=== PATIENT | female | born 1960 | race Caucasian/White ===

== ENCOUNTER 2020-10-06 08:19 | Emergency (ER) | payer MEDICAID ==
[~2020-10-06] VITALS: Ht 157.5 cm; Wt 61.1 kg
[2020-10-06 08:32] VITALS: BP 134/89
--- NOTE | 2020-10-06 10:35 | NUR ---
talked with JAVY Morrison and he says that David from [facility] is going to come down and talk with the pt. pt is aware of this plan.
--- NOTE | 2020-10-06 11:06 | NUR ---
Called David Maldonado and there was no answer and no space on voicemail to leave a message.
--- NOTE | 2020-10-06 11:30 | NUR ---
pt is being talked to at this time in her room with mental health staff
[2020-10-06] MEDS ORDERED: PROP20TA6 PO (12:30)
[2020-10-06] MEDS ORDERED: TRAZ-256 PO (12:30)
[2020-10-06] MEDS ORDERED: HYDR-3686 PO (12:30)
== END 2020-10-06 12:50 | disposition home or self-care (01) ==
LOC: ER 08:20
DX: F41.9 Anxiety disorder, unspecified (principal); F41.0 Panic disorder [episodic paroxysmal anxiety]; F42.9 Obsessive-compulsive disorder, unspecified; E78.00 Pure hypercholesterolemia, unspecified; Z79.899 Other long term (current) drug therapy
CPT/HCPCS: 99283

== ENCOUNTER 2022-08-11 04:48 | Emergency (ER) | payer MEDICAID ==
[~2022-08-11] VITALS: Ht 157.5 cm; Wt 61.4 kg
[~2022-08-11 04:48] MED LIST: PROP20TA6 PO; TRAZ-256 PO
[2022-08-11 06:02] LABS: BASOPHILS % (AUTO) 0.4 % (0-1); EOSINOPHILS # (AUTO) 0.1 X10'3 (0-0.9); EOSINOPHILS % (AUTO) 1.8 % (0-6); HEMATOCRIT 39.3 % (35.0-45.0); HEMOGLOBIN 13.1 g/dl (12.0-16.0); LYMPHOCYTES % (AUTO) 36.7 % (21-51); MEAN CORPUSCULAR HEMOGLOBIN 29.7 PG (27.0-31.0); MEAN CORPUSCULAR HGB CONC 33.4 g/dL (33.0-36.5); MEAN CORPUSCULAR VOLUME 88.9 FL (78-98); MEAN PLATELET VOLUME 9.5 FL (7.4-10.4); MONOCYTES # (AUTO) 0.5 X10'3 (0-0.9); MONOCYTES % (AUTO) 9.5 % (2-12); NEUTROPHILS # (AUTO) 2.9 X10'3 (1.8-7.7); NEUTROPHILS % (AUTO) 51.6 % (42-75); PLATELET COUNT 234 X10'3 (140-440); RED BLOOD COUNT 4.42 X10'6 (4.20-5.60); RED CELL DISTRIBUTION WIDTH 12.8 % (11.5-14.5); WHITE BLOOD COUNT 5.6 X10'3 (4.5-11.0)
[2022-08-11 06:14] LABS: ALANINE AMINOTRANSFERASE 42 U/L (12-78); ALBUMIN 3.8 G/DL (3.4-5.0); ALBUMIN/GLOBULIN RATIO 1.2 (1.1-1.5); ALKALINE PHOSPHATASE 90 IU/L (46-116); ANION GAP 9 (8-16); ASPARTATE AMINO TRANSFERASE 33 U/L (10-37); BILIRUBIN,TOTAL 0.2 MG/DL (0.1-1.0); BLOOD UREA NITROGEN 20 MG/DL (7-18); BUN/CREATININE RATIO 27.4 (6.6-38.0); CALCIUM 8.7 MG/DL (8.5-10.1); CHLORIDE 104 MMOL/L (99-107); CREATININE 0.73 MG/DL (0.40-0.90); GLUCOSE 111 MG/DL (70-104); SODIUM 140 MMOL/L (135-145); TOTAL CARBON DIOXIDE 26.6 MMOL/L (24-32); TOTAL PROTEIN 7.1 G/DL (6.4-8.2); eGFR 81 ML/MIN
[2022-08-11 06:23] LABS: POTASSIUM 3.8 MMOL/L (3.5-5.1)
--- NOTE | 2022-08-11 06:24 | NUR ---
report from gerardo for continuation of care. pt is awake ao4 no complaints. resp even unlabored.
[2022-08-11 07:47] VITALS: BP_DIAS 74
[2022-08-11 10:27] VITALS: BP_SYST 110
== END 2022-08-11 10:29 | disposition home or self-care (01) ==
LOC: ER 04:49
DX: R07.89 Other chest pain (principal); E78.00 Pure hypercholesterolemia, unspecified; F41.9 Anxiety disorder, unspecified; F32.A Depression, unspecified; Z79.899 Other long term (current) drug therapy
CPT/HCPCS: 36415; 71045; 80053; 83880; 84484; 85025; 93005; 99285

== ENCOUNTER 2022-11-11 06:42 | Day surgery (SDC) | payer MEDICAID ==
[2022-11-11] MEDS ORDERED: CLOM50CA10 PO (07:04)
[2022-11-11] MEDS ORDERED: CLON0.5T23 PO (07:04)
[2022-11-11] MEDS ORDERED: PROP20TA6 PO (07:11)
[2022-11-11] MEDS ORDERED: fentaNYL/PF 50MCG/1 ML 2ML syringe ONE (07:12)
[2022-11-11] MEDS ORDERED: MIDAZolam 1 MG/ML 5ML VIAL ONE (07:13)
[2022-11-11] MEDS ORDERED: FENO145T26 PO (07:15)
[2022-11-11] MEDS ORDERED: ROSU40TA PO (07:15)
[2022-11-11 07:23] VITALS: BP 106/72
[2022-11-11 08:46] VITALS: BP 106/72
[2022-11-11 08:56] VITALS: BP 106/71
[2022-11-11 09:06] VITALS: BP 112/88
[2022-11-11 09:16] VITALS: BP 114/86
== END 2022-11-11 09:20 | disposition home or self-care (01) ==
LOC: GI LAB 06:42
PROVIDERS: ATTEND Internal Medicine Gastroenterology
DX: R19.4 Change in bowel habit (principal)
CPT/HCPCS: 45380; 99152; 99153; J2250; J3010; J7030; Z7512; A4620

== ENCOUNTER 2022-11-12 10:46 | Emergency (ER) | payer MEDICAID ==
[~2022-11-12] VITALS: Ht 177.8 cm; Wt 63.6 kg
[~2022-11-12 10:46] MED LIST changes: +CLOM50CA10 PO; +CLON0.5T23 PO; +FENO145T26 PO; +ROSU40TA PO; -TRAZ-256 PO
[2022-11-12 11:24] VITALS: BP 100/63
--- NOTE | 2022-11-12 11:34 | NUR ---
Pt in [facility]TA, Pt was here yesterday for a colonoscopy. Pt is here today for hand, and RAC pain to her R extremity r/t a contusion from IV placement. Pt educated to POC. Pt in agreement. Pending providers eval and treatment.
== END 2022-11-12 12:50 | disposition home or self-care (01) ==
LOC: ER 10:46
DX: S60.211A Contusion of right wrist, initial encounter (principal); E78.00 Pure hypercholesterolemia, unspecified; F31.9 Bipolar disorder, unspecified; Z88.1 Allergy status to other antibiotic agents; Z79.899 Other long term (current) drug therapy; Z79.1 Long term (current) use of non-steroidal anti-inflammatories (NSAID); Z79.2 Long term (current) use of antibiotics; X58.XXXA Exposure to other specified factors, initial encounter; Y93.89 Activity, other specified; Y92.89 Other specified places as the place of occurrence of the external cause; Y99.8 Other external cause status
CPT/HCPCS: 99281

== ENCOUNTER 2022-11-15 13:40 | Emergency (ER) | payer MEDICAID ==
[~2022-11-15] VITALS: Ht 154.9 cm; Wt 63.6 kg
[2022-11-15 13:51] VITALS: BP 110/69
== END 2022-11-15 18:03 | disposition home or self-care (01) ==
LOC: ER 13:40
DX: S40.021A Contusion of right upper arm, initial encounter (principal); E78.00 Pure hypercholesterolemia, unspecified; F41.9 Anxiety disorder, unspecified; F32.9 Major depressive disorder, single episode, unspecified; Z79.899 Other long term (current) drug therapy; Z88.8 Allergy status to other drugs, medicaments and biological substances; X58.XXXA Exposure to other specified factors, initial encounter; Y93.89 Activity, other specified; Y92.89 Other specified places as the place of occurrence of the external cause; Y99.8 Other external cause status
CPT/HCPCS: 93971; 99284

== ENCOUNTER 2023-01-01 11:22 | Emergency (ER) | payer MEDICAID ==
[~2023-01-01] VITALS: Ht 157.5 cm; Wt 65.0 kg
[2023-01-01 12:52] LABS: BASOPHILS % (AUTO) 0.2 % (0-1); EOSINOPHILS % (AUTO) 0.1 % (0-6); HEMATOCRIT 42.2 % (35.0-45.0); HEMOGLOBIN 14.3 g/dl (12.0-16.0); LYMPHOCYTES # (AUTO) 1.4 X10'3 (1.1-4.8); LYMPHOCYTES % (AUTO) 24.4 % (21-51); MEAN CORPUSCULAR HEMOGLOBIN 30.3 PG (27.0-31.0); MEAN CORPUSCULAR HGB CONC 33.9 g/dL (33.0-36.5); MEAN CORPUSCULAR VOLUME 89.3 FL (78-98); MONOCYTES # (AUTO) 0.2 X10'3 (0-0.9); MONOCYTES % (AUTO) 3.6 % (2-12); NEUTROPHILS % (AUTO) 71.7 % (42-75); PLATELET COUNT 203 X10'3 (140-440); RED BLOOD COUNT 4.73 X10'6 (4.20-5.60); RED CELL DISTRIBUTION WIDTH 12.6 % (11.5-14.5); WHITE BLOOD COUNT 5.5 X10'3 (4.5-11.0)
[2023-01-01 13:07] LABS: ALANINE AMINOTRANSFERASE 28 U/L (12-78); ALBUMIN 4.1 G/DL (3.4-5.0); ALBUMIN/GLOBULIN RATIO 1.2 (1.1-1.5); ALKALINE PHOSPHATASE 99 IU/L (46-116); ANION GAP 12 (8-16); ASPARTATE AMINO TRANSFERASE 17 U/L (10-37); BLOOD UREA NITROGEN 6 MG/DL (7-18); BUN/CREATININE RATIO 11.8 (10.0-20.0); CALCIUM 9.1 MG/DL (8.5-10.1); CHLORIDE 91 MMOL/L (99-107); CREATININE 0.51 MG/DL (0.40-0.90); GLUCOSE 118 MG/DL (70-104); LIPASE 61 U/L (73-393); POTASSIUM 3.7 MMOL/L (3.5-5.1); SODIUM 126 MMOL/L (135-145); TOTAL CARBON DIOXIDE 22.6 MMOL/L (24-32); TOTAL PROTEIN 7.5 G/DL (6.4-8.2); eGFR > 90 ML/MIN
[2023-01-01 14:14] LABS: CLARITY,URINE CLEAR (Clear); COLOR,URINE YELLOW (Yellow); GLUCOSE, URINE NEGATIVE (Neg); KETONES,URINE 40 mg/dl (Neg); LEUKOCYTE ESTERASE ,URINE NEGATIVE (Neg); NITRITES, URINE NEGATIVE (Neg); OCCULT BLOOD,URINE TRACE-INTACT (Neg); PROTEIN,URINE NEGATIVE (Neg); UROBILINOGEN,URINE 0.2 E.U/dL (0.2-1.0)
[2023-01-01] MEDS ORDERED: LORazepam 2 mg/ml vial IM ONE (14:20)
[2023-01-01] MEDS ORDERED: normal saline 1000ml 1,000 ML IV ONE ×2 (14:20→15:15)
[2023-01-01 14:22] LABS: UA COLLECTION TYPE CLN CATCH MIDSTREAM
[2023-01-01 14:24] LABS: BACTERIA,URINE 1+ /HPF (Neg); MUCUS STRANDS FEW /LPF (Neg); RBC,URINE 0-2 /HPF (0-2); SQUAMOUS EPITHELIAL CELL,UR FEW /LPF (FEW)
[2023-01-01] MEDS ORDERED: cephalexin 500mg capsule PO ONE (14:30)
[2023-01-01] MEDS ORDERED: sodium chloride 1gm tablet PO SCH (15:15)
[2023-01-01 15:27] VITALS: BP 137/83
[2023-01-01] MEDS ORDERED: CEPH250T PO (16:14)
[2023-01-01] MEDS ORDERED: LORA-269 PO (16:14)
== END 2023-01-01 17:18 | disposition home or self-care (01) ==
LOC: ER 11:23
DX: R11.2 Nausea with vomiting, unspecified (principal); N39.0 Urinary tract infection, site not specified; F41.9 Anxiety disorder, unspecified; E78.00 Pure hypercholesterolemia, unspecified; Z88.1 Allergy status to other antibiotic agents; Z79.899 Other long term (current) drug therapy
CPT/HCPCS: 36415; 80053; 81001; 83690; 85025; 87088; 96372; 99283; J2060; J7030

== ENCOUNTER 2023-11-03 15:21 | Outpatient (CLI) | payer MEDICAID ==
[~2023-11-03 15:21] MED LIST changes: +LORA-269 PO
== END 2023-11-03 23:59 | disposition home or self-care (01) ==
LOC: RAD 15:21
PROVIDERS: ATTEND Physician Assistant
DX: N85.8 Other specified noninflammatory disorders of uterus (principal); N95.0 Postmenopausal bleeding
CPT/HCPCS: 76856; 93976

== ENCOUNTER 2024-08-27 15:59 | Emergency (ER) | payer MEDICARE, MEDICAID ==
[~2024-08-27] VITALS: Ht 157.5 cm; Wt 67.3 kg
[2024-08-27 17:05] LABS: BASOPHILS % (AUTO) 0.3 % (0-1); EOSINOPHILS % (AUTO) 0.2 % (0-6); HEMATOCRIT 39.8 % (35.0-45.0); HEMOGLOBIN 14.1 g/dl (12.0-16.0); LYMPHOCYTES # (AUTO) 1.5 X10'3 (1.1-4.8); LYMPHOCYTES % (AUTO) 25.9 % (21-51); MEAN CORPUSCULAR HEMOGLOBIN 31.8 PG (27.0-31.0); MEAN CORPUSCULAR HGB CONC 35.4 g/dL (33.0-36.5); MEAN PLATELET VOLUME 8.7 FL (7.4-10.4); MONOCYTES # (AUTO) 0.3 X10'3 (0-0.9); NEUTROPHILS # (AUTO) 3.8 X10'3 (1.8-7.7); NEUTROPHILS % (AUTO) 67.6 % (42-75); PLATELET COUNT 228 X10'3 (140-440); RED BLOOD COUNT 4.42 X10'6 (4.20-5.60); RED CELL DISTRIBUTION WIDTH 13.1 % (11.5-14.5); WHITE BLOOD COUNT 5.6 X10'3 (4.5-11.0)
[2024-08-27] MEDS: ondansetron/PF 4mg/2ml inj IV ONE (17:16)
[2024-08-27] MEDS: normal saline 1000ml 1,000 ML IV SCH (17:16)
[2024-08-27] MEDS: LORazepam 2 mg/ml vial IV ONE (17:25)
[2024-08-27 17:30] LABS: ALANINE AMINOTRANSFERASE 70 U/L (12-78); ALBUMIN 4.1 G/DL (3.4-5.0); ALKALINE PHOSPHATASE 88 IU/L (46-116); AMYLASE 68 U/L (25-115); ANION GAP 9 (8-16); ASPARTATE AMINO TRANSFERASE 38 U/L (10-37); BILIRUBIN,TOTAL 0.9 MG/DL (0.1-1.0); BLOOD UREA NITROGEN 6 MG/DL (7-18); CHLORIDE 94 MMOL/L (99-107); GLUCOSE 119 MG/DL (70-104); LIPASE 32 U/L (16-77); SODIUM 128 MMOL/L (135-145); TOTAL CARBON DIOXIDE 24.7 MMOL/L (24-32); TOTAL PROTEIN 8.1 G/DL (6.4-8.2); eCRCL 89 ML/MIN; eGFR > 90 ML/MIN
[2024-08-27 19:01] VITALS: BP 130/78; PULSE 65; RESP 15; TEMP 96.8; O2SAT 100
[2024-08-27] MEDS ORDERED: ONDA-243 PO (19:20)
== END 2024-08-27 19:05 | disposition home or self-care (01) ==
LOC: ER 16:00
DX: K76.0 Fatty (change of) liver, not elsewhere classified (principal); R10.11 Right upper quadrant pain; E78.00 Pure hypercholesterolemia, unspecified; F41.9 Anxiety disorder, unspecified; F32.A Depression, unspecified; Z88.8 Allergy status to other drugs, medicaments and biological substances
CPT/HCPCS: 36415; 74022; 76700; 80053; 82150; 83690; 85025; 96361; 96374; 96375; 99285; J2060; J2405; J7030

== ENCOUNTER 2025-01-16 15:58 | Emergency (ER) | payer MEDICARE, MEDICAID ==
[~2025-01-16] VITALS: Ht 157.5 cm; Wt 57.2 kg
[~2025-01-16 15:58] MED LIST changes: +ONDA-243 PO
[2025-01-16 16:13] VITALS: BP 117/78; PULSE 86; RESP 18; O2SAT 95
--- NOTE | 2025-01-16 17:04 | Physician Documentation ---
History of Present Illness ~ Chief Complaint: Depression Stated Complaint: DEPRESSION Time Seen by MD: 16:42 Primary Medical Doctor: [facility] HPI 64 Year old female presents to the ED with a complaint of ongoing anxiety. She says she is already being seen the [facility] for psychiatry. She has been on multiple medications that do not appear to be helping her . denies any HI or SI. She states she would like to go up stairs to [place] for [facility]. Day of Onset: Jan 16, 2025 Medication Reconciliation Allergies: Coded Allergies: niacin (Unverified Allergy, Intermediate, hives, 08/27/24) Scheduled Clomipramine HCl (Clomipramine HCl), 1 CAP PO HS, (Reported) Clonazepam (Clonazepam), 1 TAB PO Q6H, (Reported) Fenofibrate Nanocrystallized (Fenofibrate), 1 TAB PO DAILY, (Reported) Hydroxyzine Hcl* (Atarax*), 1 TAB PO Q12H Lorazepam (Ativan), 1 TAB PO Q8H Propranolol Hcl (Propranolol Hcl), 1 TAB PO Q12H, (Reported) Rosuvastatin Calcium* (Crestor*), 1 TAB PO DAILY, (Reported) Scheduled PRN ONDANSETRON ODT 4mg tablet (Ondansetron Odt), 1 TAB PO Q6H PRN PRN for nause a/vomiting Past Medical History Past Medical History: High Cholesterol, *PSYCH*, Anxiety, Depression, Panic Disorder Past Surgical History: noncontributory Alcohol Use: None Drug Use: none Lives In: Home Occupation: disabled Review of Systems All Other Systems at this time: Reviewed and Negative ROS As stated above in the HPI, otherwise all systems are reviewed and negative. Physical Exam Vital Signs: Temperature: 98.5, Heart Rate: 86, Respiratory Rate: 18, BP: 117/78, Pulse Oximetry: 95, Weight: 57.200 Oxygen Flow Rate: 0 Physical Exam General: Alert, no apparent distress. HEENT: PERRL, EOMI, no injection, moist mucous membranes. Neurologic: Oriented x4. Psychiatric: Anxious appearing Skin: Normal color, warm and dry. No edema, no ecchymosis. Progress Results/Orders Results/Orders Vital Signs 01/16/25 01/16/25 16:13 17:39 Temp 98.5 98.5 Pulse 86 Resp 18 B/P (MAP) 117/78 Pulse Ox 95 O2 Flow Rate 0 Medical Decision Making Findings It is mostly with the patient that I can offer hydroxyzine to help with anxiety but really she needs to follow up in the outpatient setting and pursue therapy if she feels that medications are not working for her Has a resources reports some and will do so as directed. Differential Dx:Considerations: Include: Alcohol abuse, Anxiety, Bipolar disorder, Conversion disorder, Depression, Encephaloathy, Homicidal, Panic disorder, Personality disorder, Schizophrenia, Substance abuse, Suicidal, Other Departure Disposition: 01 HOME / SELF CARE / HOMELESS Impression: Primary Impression: Depression Additional Impression: Anxiety Condition: Stable Discharge Instructions: Managing Anxiety, Adult Referrals: NO PRIMARY CARE PROVIDER (PCP) Prescriptions Hydroxyzine Hcl* (Atarax*) 25 Mg Tablet 1 TAB PO Q12H for anxiety for 30 Days, #60 TAB Prov: RANDAL TEMPLE HYDRAULIC BULL RIVETER OPERATOR 01/16/25 Signature Scribe Signature: y Attestation: Scribed for Randal Tmeple Inspector by Randal Patel NP . 01/16/25 22:59 RANDAL TEMPLE NP Jan 16, 2025 17:04
[2025-01-16] MEDS ORDERED: HYDR-3686 PO (17:05)
[2025-01-16 17:39] VITALS: TEMP 98.5
== END 2025-01-16 17:40 | disposition home or self-care (01) ==
LOC: ER 15:58
DX: F32.A Depression, unspecified (principal); F41.9 Anxiety disorder, unspecified; E78.00 Pure hypercholesterolemia, unspecified
CPT/HCPCS: 99283

== ENCOUNTER 2025-03-12 20:02 | Emergency (ER) | payer MEDICARE, MEDICAID | END 2025-03-12 22:54 | disposition left against medical advice (07) | LOC: ER 20:02 | DX: Z00.8 Encounter for other general examination (principal); Z88.8 Allergy status to other drugs, medicaments and biological substances; Z53.21 Procedure and treatment not carried out due to patient leaving prior to being seen by health care provider ==

== ENCOUNTER 2025-05-23 12:20 | Emergency (ER) | payer MEDICARE, MEDICAID ==
[~2025-05-23] VITALS: Ht 154.9 cm; Wt 52.1 kg
[2025-05-23 12:23] VITALS: BP 112/68; PULSE 76; RESP 16; TEMP 97.8; O2SAT 98
--- NOTE | 2025-05-23 13:29 | Physician Documentation ---
History of Present Illness ~ Chief Complaint: Mental Health Eval Stated Complaint: EVLORENA Time Seen by MD: 13:28 Primary Medical Doctor: [facility] HPI This is a 65-year-old female that presents to the emergency department requesting help with her anxiety. She reports that she has seen a psychiatrist at [facility], although not recently. She reports that her anxiety is severe, but denies suicidal or homicidal ideation. Denies symptoms of illness to include chills or fever, chest pain or shortness of breath, nausea or vomiting. Medication Reconciliation Allergies: Coded Allergies: niacin (Unverified Allergy, Intermediate, hives, 05/23/25) Scheduled Clomipramine HCl (Clomipramine HCl), 1 CAP PO HS, (Reported) Clonazepam (Clonazepam), 1 TAB PO Q6H, (Reported) Fenofibrate Nanocrystallized (Fenofibrate), 1 TAB PO DAILY, (Reported) Lorazepam (Ativan), 1 TAB PO Q8H Propranolol Hcl (Propranolol Hcl), 1 TAB PO Q12H, (Reported) Rosuvastatin Calcium* (Crestor*), 1 TAB PO DAILY, (Reported) Scheduled PRN ONDANSETRON ODT 4mg tablet (Ondansetron Odt), 1 TAB PO Q6H PRN PRN for nausea/vomiting Past Medical History Past Medical History: High Cholesterol, *PSYCH*, Anxiety, Depression, Panic Disorder Past Surgical History: noncontributory Alcohol Use: None Drug Use: none Lives In: Home Occupation: disabled Review of Systems ROS As stated above in the HPI, otherwise all systems are reviewed and negative. Physical Exam Vital Signs: Temperature: 97.8, Source: Temporal, Heart Rate: 76, Respiratory Rate: 16, BP: 112/68, Pulse Oximetry: 98, Weight: 52.100 Oxygen Flow Rate: 0 Physical Exam General: Alert, no apparent distress. HEENT: PERRL, EOMI, no injection, moist mucous membranes. Neck: Full range of motion. Respiratory: Lungs clear, no respiratory distress. Chest: No accessory muscle use. Cardiovascular: Regular rate and rhythm, no murmurs. Gastrointestinal: Soft, nontender, nondistended. Bowels sounds present. Extremities: Normal range of motion, no deformity. Neurologic: Oriented x4. Psychiatric: Normal mood and affect. Skin: Normal color, warm and dry. No edema, no ecchymosis. Progress Results/Orders Results/Orders Completed Orders - DUC DE LEON NP Hydroxyzine Tablet (Atarax Tablet) (05/23/25 13:35) Vital Signs 05/23/25 12:23 Temp 97.8 Pulse 76 Resp 16 B/P (MAP) 112/68 Pulse Ox 98 O2 Flow Rate 0 Medical Decision Making Additional information obtaine: old records Findings Last seen in this hospital 01/16/2025 for anxiety. Differential Dx:Considerations: Include: Alcohol abuse, Anxiety, Bipolar disorder, Conversion disorder, Depression, Encephaloathy, Homicidal, Panic disorder, Personality disorder, Schizophrenia, Substance abuse, Suicidal Departure Time of Disposition: 13:51 Disposition: 01 HOME / SELF CARE / HOMELESS Impression: Primary Impression: Anxiety Discharge Instructions: Panic Attack, Depression, Adult Additional Instructions: You were given resources for mental health care. You were given a dose of anxiety medicine in the ER. Please see the psychiatrist as recommended to disc uss medication management. Please return if worse. Referrals: NO PRIMARY CARE PROVIDER (PCP) Education Educated: Patient Educated regarding: diagnosis, treatment, prognosis, need for follow up Signature Scribe Signature: x Attestation: The note accurately reflects work and decisions made by me.Duc Patel NP 05/23/25 13:34 DUC DE LEON NP May 23, 2025 13:29
[2025-05-26] MEDS ORDERED: TRAZ-251 PO (07:18)
[2025-05-26] MEDS ORDERED: GABA300C PO (07:19)
[2025-05-26] MEDS ORDERED: QUET50TA PO (07:40)
== END 2025-05-23 14:32 | disposition home or self-care (01) ==
LOC: ER 12:21
DX: F41.9 Anxiety disorder, unspecified (principal); E78.00 Pure hypercholesterolemia, unspecified; F32.A Depression, unspecified; Z88.8 Allergy status to other drugs, medicaments and biological substances; Z79.899 Other long term (current) drug therapy
CPT/HCPCS: 99282

== ENCOUNTER 2025-06-22 08:06 | Emergency (ER) | payer MEDICARE, MEDICAID ==
[~2025-06-22] VITALS: Ht 154.9 cm; Wt 56.4 kg
[2025-06-22 08:06] VITALS: TEMP 98.1
[~2025-06-22 08:06] MED LIST changes: +ATOR20TA66 PO; -CLOM50CA10 PO; -CLON0.5T23 PO; -FENO145T26 PO; -LORA-269 PO; -ONDA-243 PO; +PROP10TA10 PO; -PROP20TA6 PO; +RISP-32 PO; -ROSU40TA PO; +gabapentin capsule PO
[2025-06-22 08:32] LABS: MEAN PLATELET VOLUME 8.9 FL (7.4-10.4); RED CELL DISTRIBUTION WIDTH 13.1 % (11.5-14.5)
[2025-06-22 08:47] LABS: CREATININE 0.73 MG/DL (0.40-0.90); TOTAL CARBON DIOXIDE 28.9 MMOL/L (24-32); eCRCL 57 ML/MIN; eGFR 80 ML/MIN
[2025-06-22 10:13] LABS: LEUKOCYTE ESTERASE ,URINE NEGATIVE (Neg); NITRITES, URINE NEGATIVE (Neg); OCCULT BLOOD,URINE NEGATIVE (Neg)
[2025-06-22 10:23] LABS: UA COLLECTION TYPE CLN CATCH MIDSTREAM
[2025-06-22 10:27] LABS: MUCUS STRANDS MODERATE /LPF (Neg)
[2025-06-22 10:28] LABS: SQUAMOUS EPITHELIAL CELL,UR FEW /LPF (FEW)
[2025-06-22 10:47] VITALS: BP 111/72; PULSE 69; RESP 18; O2SAT 98
[2025-06-22] MEDS ORDERED: HYDR-3686 PO (11:15)
--- NOTE | 2025-06-22 11:16 | Physician Documentation ---
History of Present Illness Chief Complaint: Abdominal Pain Stated Complaint: ABD PAIN Time Seen by MD: 10:46 OK to notify your PCP?: Yes Primary Medical Doctor: [facility] Source: patient Mode of Arrival: POV Exam Limitations: no limitations HPI Brought in by ambulance for lower abdominal aching for the past couple of days with some nausea. She had 1 episode of diarrhea. She reports that she has not eaten anything in 3 days. She reports that she abruptly went off of risperidone and gabapentin. She plans to follow up with her mental health provider on Tuesday. She is requesting Ativan. She reports that she had 25 mg of Atarax about 7 months ago but she did not like the way that it made her feel and she prefers Ativan instead. She reports that she has been under increased stress for the past 9-10 weeks and feeling more anxious than normal. She denies any HI or SI. She wrote a list of things that have been worrying her and she is being tracked by a secret organization". She reports that her mental provider told her that she is having hallucinations but she says that it is real and not a hallucination. Medication Reconciliation Allergies: Coded Allergies: niacin (Unverified Allergy, Intermediate, hives, 06/22/25) Scheduled Atorvastatin Calcium (Atorvastatin Calcium), 20 MG PO HS Hydroxyzine Hcl* (Atarax*), 0.5 TAB PO Q12H Propranolol Hcl* (Inderal*), 10 MG PO TID Risperidone (Risperidone), 2 MG PO BID [gabapentin capsule], 900 MG PO TID Past Medical History Past Medical History: High Cholesterol, *PSYCH*, Anxiety, Depression, Panic Disorder Past Surgical History: noncontributory Alcohol Use: None Drug Use: none Lives with: Alone Lives In: Home Occupation: disabled Review of Systems All Other Systems at this time: Reviewed and Negative Physical Exam Vital Signs: RN Vital Signs have been reviewed: Yes, Temperature: 98.1, Source: Temporal, Heart Rate: 69, Respiratory Rate: 18, BP: 111/72, Pulse Oximetry: 98, Weight: 56.360 Oxygen Flow Rate: 0 Pulse Oximetry Reflects: adequate oxygenation Physical Exam General: Alert, no apparent distress. HEENT: PERRL, EOMI, no injection, moist mucous membranes. Neck: Full range of motion. Respiratory: Lungs clear, no respiratory distress. Chest: No accessory muscle use. Cardiovascular: Regular rate and rhythm, no murmurs. Gastrointestinal: Soft, nontender, nondistended. Bowels sounds present. Extremities: Normal range of motion, no deformity. Neurologic: Oriented x4. Psychiatric: Normal mood and affect. Skin: Normal color, warm and dry. No edema, no ecchymosis. Progress Results/Orders Reviewed/noted all lab results: Yes Results/Orders Vital Signs 06/22/25 06/22/25 08:06 10:47 Temp 98.1 Pulse 70 69 Resp 16 18 B/P (MAP) 118/68 111/72 (85) Pulse Ox 98 98 O2 Flow Rate 0 Laboratory Tests Test 06/22/25 08:21 06/22/25 09:20 White Blood Count 5.0 Red Blood Count 4.35 Hemoglobin 13.7 Hematocrit 39.5 Mean Corpuscular Volume 90.8 Mean Corpuscular Hemoglobin 31.4 H Mean Corpuscular Hemoglobin Concent 34.6 Red Cell Distribution Width 13.1 Platelet Count 214 Mean Platelet Volume 8.9 Neutrophils (%) (Auto) 69.3 Lymphocytes (%) (Auto) 24.0 Monocytes (%) (Auto) 5.8 Eosinophils (%) (Auto) 0.4 Basophils (%) (Auto) 0.5 Neutrophils # (Auto) 3.5 Lymphocytes # (Auto) 1.2 Monocytes # (Auto) 0.3 Eosinophils # (Auto) 0.0 Basophils # (Auto) 0.0 CBC Comment Sodium Level 141 Potassium Level 3.6 Chloride Level 104 Carbon Dioxide Level 28.9 Anion Gap 8 Blood Urea Nitrogen 13 Creatinine 0.73 Estimated GFR/1.73 m2 80 BUN/Creatinine Ratio 17.8 Glucose Level 93 Calcium Level 8.9 Total Bilirubin 0.9 Aspartate Amino Transf (AST/SGOT) 17 Alanine Aminotransferase (ALT/SGPT) 22 Alkaline Phosphatase 82 Total Protein 7.6 Albumin 3.9 Globulin 3.7 Albumin/Globulin Ratio 1.1 Lipase 34 Chemistry Comments Urine Specimen Description Cln catch midstream Urine Color Yellow Urine Clarity Slightly cloudy Urine pH 6.0 Urine Specific [place] 1.025 Urine Protein Negative Urine Glucose (UA) Negative Urine Ketones 15 H Urine Occult Blood Negative Urine Nitrite Negative Urine Bilirubin Negative Urine Urobilinogen 0.2 Urine Leukocyte Esterase Negative Urine RBC 0-2 Urine WBC 0-4 Urine Squamous Epithelial Cells Few Urine Bacteria Few Urine Mucus Moderate Urine Culture Indicated Not ind Volume Urine Centrifuged 10 ml Urine Comment Medical Decision Making Additional information obtaine: old records Findings Reports with nonspecific abdominal pain but has also not eaten a meal in the past few days. Discussed that she should start eating foods from the BRAT diet to prevent further upset stomach. Labs are unremarkable. A physical exam is unremarkable. She reports feeling anxious but did not like taking a 25 mg tablet of hydroxyzine. She is requesting Ativan instead. I declined the Ativan but gave a 10 mg hydroxyzine. Prescription sent to the pharmacy that she can take as needed for the half tablet of the 25 mg. We discussed that if she is feeling like it is not as helpful, she can take a full tablet. Has plans to meet with her mental health provider on Tuesday. Denies any HI or SI. Differential Dx:Considerations: Bowel obstruction, Cholelithasis, Constipation, Gastritis/PUD, Pancreatitis, Urinary tract infection Additional Comments Medication non adherence, suicidal ideation, homicidal ideation. Departure Disposition: HOME / SELF CARE / HOMELESS Impression: Primary Impression: Anxiety Additional Impression: Mental disorder Condition: Stable Discharge Instructions: Managing Anxiety, Adult Additional Instructions: Please follow up with your mental health provider on Tuesday as discussed. Take your mental health medications as prescribed. Return back here for any new or worsening symptoms. Referrals: NO PRIMARY CARE PROVIDER (PCP) Prescriptions Hydroxyzine Hcl* (Atarax*) 25 Mg Tablet 0.5 TAB PO Q12H for anxiety for 30 Days, #30 TAB Prov: DEBBIE PATIÑO 06/22/25 Education Educated: Patient Educated regarding: diagnosis, treatment, prognosis, need for follow up Additional Comment Medical Screen Exam This patient recieved a medical screening examination. After reviewing the individual's medical complaints with presenting symptoms and performing an appropriate physical examination, it was determined that no immediate life-th reatening emergency medical condition is present. This individual is also not a women having contractions. I have reviewed this case [id number] with the PA, including physical examination, laboratory and imaging results as appropriate. The patient was evaluated [id number] and I agree with the PA's notes. I agree with the findings, evaluation and disposition. Signature Scribe Signature: . Attestation: Scribed for Debbie Patiño Cooling Tower Operator by Debbie Patel NP . 06/22/25 11:21 Parts of this note were created using [employer] voice recognition software program. While efforts were made to correct any mistakes made by this voice recognition software program, nonsensical phrases may remain in this note. In addition, there may be errors and syntax, grammar, content and spelling. DEBBIE PATIÑO Jun 22, 2025 11:16 SUMANTH WOLFF MD Jun 22, 2025 18:28
== END 2025-06-22 11:47 | disposition home or self-care (01) ==
LOC: ER 08:06
DX: F41.9 Anxiety disorder, unspecified (principal); F99 Mental disorder, not otherwise specified; E78.00 Pure hypercholesterolemia, unspecified; F32.A Depression, unspecified; Z88.8 Allergy status to other drugs, medicaments and biological substances; Z79.899 Other long term (current) drug therapy; Z60.2 Problems related to living alone
CPT/HCPCS: 36415; 80053; 81001; 83690; 85025; 99283

== ENCOUNTER 2025-07-06 16:46 | Emergency (ER) | payer MEDICARE, MEDICAID ==
[~2025-07-06] VITALS: Ht 157.5 cm; Wt 57.4 kg
[~2025-07-06 16:46] MED LIST changes: +HYDR-3686 PO
--- NOTE | 2025-07-06 18:51 | Physician Documentation ---
History of Present Illness ~ Chief Complaint: Extremity Swelling Stated Complaint: R LEG SWELLING Time Seen by MD: 17:18 Primary Medical Doctor: [facility] HPI This is a 65-year-old female who presents with four days of progressively worsening bilateral lower leg edema worse on the right side, patient reports pain extending from her calf to thigh in right leg and no pain in left leg. Patient reports she sleeps in a recliner due to comfort. Patient reports no chest pain or shortness of breath. Patient reports no history of hormonal medications or cancer. Patient reports that she has had episodes of bilateral lower extremity edema at least 4 times this year reports that this normally self resolves. Medication Reconciliation Allergies: Coded Allergies: niacin (Unverified Allergy, Intermediate, hives, 07/06/25) Scheduled Atorvastatin Calcium (Atorvastatin Calcium), 20 MG PO HS Hydroxyzine Hcl* (Atarax*), 0.5 TAB PO Q12H Propranolol Hcl* (Inderal*), 10 MG PO TID Risperidone (Risperidone), 2 MG PO BID [gabapentin capsule], 900 MG PO TID Past Medical History Past Medical History: High Cholesterol, *PSYCH*, Anxiety, Depression, Panic Disorder Past Surgical History: noncontributory Smoking Status: Never smoker Alcohol Use: None Drug Use: none Lives with: Alone Lives In: Home Occupation: disabled Review of Systems ROS As stated above in the HPI, otherwise all systems are reviewed and negative. Physical Exam Vital Signs: Temperature: 97.9, Source: Temporal, Heart Rate: 73, Respiratory Rate: 18, BP: 109/65, Pulse Oximetry: 97, Weight: 57.400 Oxygen Flow Rate: 0 General Appearance VITALS: Reviewed and as above. GENERAL: Alert, nontoxic appearing, no apparent distress. RESPIRATORY: No increased work of breathing, no respiratory distress, speaking in full clear sentences, clear lung sounds all weeks CV: Regular rate and rhythm no murmur. Bilateral nonpitting lower extremity edema. Pedal pulses intact bilaterally MUSCULOSKELETAL: Mild tenderness to palpation posterior right calf SKIN: Warm and dry, no lower extremity erythema or ecchymosis NEURO: Sensation intact to bilateral lower extremities Progress Results/Orders Results/Orders Orders - JENNY FRANCO Vl Venous (07/06/25 18:08) Completed Orders - JENNY FRANCO Cbc/Diff (07/06/25 18:08) BMP (07/06/25 18:08) PBNP (07/06/25 18:08) Vl Venous (07/06/25 18:08) Vital Signs 07/06/25 07/06/25 17:13 19:54 Temp 97.9 97.9 Pulse 73 67 Resp 18 16 B/P (MAP) 109/65 117/79 Pulse Ox 97 98 O2 Flow Rate 0 Laboratory Tests Test 07/06/25 18:46 White Blood Count 5.1 Red Blood Count 4.02 L Hemoglobin 12.3 Hematocrit 37.1 Mean Corpuscular Volume 92.3 Mean Corpuscular Hemoglobin 30.8 Mean Corpuscular Hemoglobin Concent 33.3 Red Cell Distribution Width 13.0 Platelet Count 198 Mean Platelet Volume 8.6 Neutrophils (%) (Auto) 55.6 Lymphocytes (%) (Auto) 33.7 Monocytes (%) (Auto) 8.7 Eosinophils (%) (Auto) 1.3 Basophils (%) (Auto) 0.7 Neutrophils # (Auto) 2.9 Lymphocytes # (Auto) 1.7 Monocytes # (Auto) 0.4 Eosinophils # (Auto) 0.1 Basophils # (Auto) 0.0 CBC Comment Sodium Level 141 Potassium Level 3.6 Chloride Level 107 Carbon Dioxide Level 31.0 Anion Gap 3 L Blood Urea Nitrogen 13 Creatinine 0.55 Estimated GFR/1.73 m2 > 90 BUN/Creatinine Ratio 23.6 H Glucose Level 88 Calcium Level 8.4 L Pro-B-Type Natriuretic Peptide 31 Albumin 3.4 Chemistry Comments EKG/XRAY/CT/US/VASC/MRI Ultrasound : Impression Exam Name: VENOUS Technologist: CLINICAL HISTORY: Bilateral leg swelling and calf pain TECHNIQUE: Color and duplex doppler imaging of the bilateral lower extremity veins was performed. Vessel compression if possible was also performed. WID: COMPARISON: VENOUS on DOS: 11/15/22 FINDINGS: Right Lower Extremity: Right common femoral vein: Normal compressibility and flow. Right femoral vein: Normal compressibility and flow. Right popliteal vein: Normal compressibility and flow. Proximal calf veins are normally compressible. Left Lower Extremity: Left common femoral vein: Normal compressibility and flow. Left femoral vein: Normal compressibility and flow. Left popliteal vein: Normal compressibility and flow. Proximal calf veins are normally compressible. IMPRESSION: 1. NO SONOGRAPHIC EVIDENCE FOR DEEP VENOUS THROMBOSIS IN THE BILATERAL LOWER EXTREMITY VEINS. Dictated by:KISHAN GRAHAM MD Dictation date and time:07/06/251912 Electronically Signed by: KISHAN GRAHAM MD Date and Time: 07/06/251912 Transcribed: DARRELL Medical Decision Making Additional information obtaine: N/A Findings Ultrasound negative for DVT, labs without significant abnormality, no clear cause of lower extremity edema though it is reassuring patient reports no chest pain, shortness breath, difficulty lying flat, and vital signs are stable. Wells score 0 placing patient low risk group for PE. Patient is otherwise well- appearing and benign physical exam. I suspect patient has lower extremity edema and may be related to the package she sleeps in a recliner. Additionally it is reassuring patient reports she sleeps in a recliner due to comfort and not due to being unable to lay flat. Patient provided careful return to care precautions follow up instructions, and home care instructions. Differential Dx:Considerations: Include: hall's cyst, Cancer, Cellulitis, Congestive heart failure, Compartment syndrome, Contusion, Deep venous thrombosis, Liver failure, Malnutrition, Muscle spasm, Popliteal vein aneurysm, Renal faliure, Strain, Superfic thrombophlebitis, Venous insufficiency Departure Time of Disposition: 19:42 Disposition: 01 HOME / SELF CARE / HOMELESS Impression: Primary Impression: Edema of lower extremity Condition: Improved Discharge Instructions: Peripheral Edema Additional Instructions: I suspect your lower leg swelling is related to you sleeping in a recliner, consider elevating her legs at night when you sleep. Please follow up with your primary care provider in the next few days. Please return to the emergency department for any new or worsening concerning symptoms including but not limited to for chest pain or shortness of breath. Referrals: NO PRIMARY CARE PROVIDER (PCP) Education Educated: Patient Educated regarding: diagnosis, treatment, need for follow up Signature Scribe Signature: No scribe Attestation: The note accurately reflects work and decisions made by me.IZZY Aly 07/07/25 01:47 JENNY FRANCO Jul 06, 2025 18:51
[2025-07-06 19:07] LABS: MEAN PLATELET VOLUME 8.6 FL (7.4-10.4); RED CELL DISTRIBUTION WIDTH 13.0 % (11.5-14.5)
--- NOTE | 2025-07-06 19:16 | VASCULAR REPORT ---
CLINICAL HISTORY: Bilateral leg swelling and calf pain TECHNIQUE: Color and duplex doppler imaging of the bilateral lower extremity veins was performed. Vessel compression if possible was also performed. WID: COMPARISON: VL VENOUS on DOS: 11/15/22 FINDINGS: Right Lower Extremity: Right common femoral vein: Normal compressibility and flow. Right femoral vein: Normal compressibility and flow. Right popliteal vein: Normal compressibility and flow. Proximal calf veins are normally compressible. Left Lower Extremity: Left common femoral vein: Normal compressibility and flow. Left femoral vein: Normal compressibility and flow. Left popliteal vein: Normal compressibility and flow. Proximal calf veins are normally compressible. IMPRESSION: 1. NO SONOGRAPHIC EVIDENCE FOR DEEP VENOUS THROMBOSIS IN THE BILATERAL LOWER EXTREMITY VEINS.
[2025-07-06 19:28] LABS: CREATININE 0.55 MG/DL (0.40-0.90); PRO BRAIN NATRIURETIC PEPTIDE 31 PG/ML (0-125); TOTAL CARBON DIOXIDE 31.0 MMOL/L (24-32); eCRCL 80 ML/MIN; eGFR > 90 ML/MIN
[2025-07-06 19:54] VITALS: BP 117/79; PULSE 67; RESP 16; TEMP 97.9; O2SAT 98
== END 2025-07-06 19:55 | disposition home or self-care (01) ==
LOC: ER 16:47
DX: R60.0 Localized edema (principal); E78.00 Pure hypercholesterolemia, unspecified; F41.9 Anxiety disorder, unspecified; F32.A Depression, unspecified; Z60.2 Problems related to living alone; Z88.8 Allergy status to other drugs, medicaments and biological substances; Z79.899 Other long term (current) drug therapy
CPT/HCPCS: 36415; 80048; 83880; 85025; 93970; 99284